=== PATIENT | female | born 1980 | race Asian ===

== ENCOUNTER 2017-06-06 17:14 | Emergency (ER) | payer OTHER ==
[~2017-06-06] VITALS: Ht 152.4 cm; Wt 58.5 kg
[2017-06-06 17:43] LABS: PLATELET COUNT 206 K/uL (152-353)
== END 2017-06-06 18:18 | disposition home or self-care (01) ==
LOC: ED 17:14
DX: O46.91 Antepartum hemorrhage, unspecified, first trimester (principal); Z3A.01 Less than 8 weeks gestation of pregnancy; R25.2 Cramp and spasm
CPT/HCPCS: 36415; 81000; 84702; 85027; 99284